=== PATIENT | male | born 1960 | race Caucasian/White ===

== ENCOUNTER 2022-02-08 10:27 | Inpatient (IN) | payer MEDICARE, MEDICAID ==
[~2022-02-08] VITALS: Ht 170.2 cm; Wt 72.7 kg
[~2022-02-08 10:27] MED LIST: ALBU8.5H17 IH; BUDE10.22 IH; CALC300T4 PO; DOCU-28 PO; FURO40TA4 PO; LAN0.125T PO; LISI5TAB22 PO; LOP25T PO; POTA10CA44 PO; WARF7.5T48 PO
[2022-02-08] MEDS ORDERED: HYDROcodone/acetaminophen 5mg/325mg tablet PO ONE (13:35)
[2022-02-08] MEDS ORDERED: normal saline 1000ML IV soln IV ONE (13:35)
[2022-02-08] MEDS ORDERED: vancomycin/NS 1 GM ADD-VANTAGE 250 ML IV ONE (13:35)
[2022-02-08] MEDS ORDERED: CefTRIAXone 2gm/D5W 50ml BAG 50 ML IV ONE (13:35)
[2022-02-08] MEDS ORDERED: iohexol 300mg/ml 100ml inj. ONE (14:01)
[2022-02-08 14:25] LABS: ALANINE AMINOTRANSFERASE 56 U/L (12-78); ALBUMIN 3.8 G/DL (3.4-5.0); ALKALINE PHOSPHATASE 78 IU/L (46-116); ANION GAP 9 (8-16); ASPARTATE AMINO TRANSFERASE 43 U/L (10-37); BILIRUBIN,TOTAL 0.7 MG/DL (0.1-1.0); BLOOD UREA NITROGEN 14 MG/DL (7-18); BUN/CREATININE RATIO 10.7 (5.4-32.0); CALCIUM 9.1 MG/DL (8.5-10.1); CHLORIDE 102 MMOL/L (99-107); CREATININE 1.31 MG/DL (0.60-1.10); GLUCOSE 95 MG/DL (70-104); SODIUM 139 MMOL/L (135-145); TOTAL PROTEIN 7.8 G/DL (6.4-8.2); eGFR 56 ML/MIN
[2022-02-08 14:35] LABS: BASOPHILS # (AUTO) 0.1 X10'3 (0-0.2); BASOPHILS % (AUTO) 0.4 % (0-1); EOSINOPHILS # (AUTO) 0.2 X10'3 (0-0.9); EOSINOPHILS % (AUTO) 1.3 % (0-6); HEMATOCRIT 34.7 % (42.0-52.0); HEMOGLOBIN 11.7 g/dl (14.0-17.9); LYMPHOCYTES # (AUTO) 1.3 X10'3 (1.1-4.8); LYMPHOCYTES % (AUTO) 10.6 % (21-51); MEAN CORPUSCULAR HEMOGLOBIN 32.4 PG (27.0-31.0); MEAN CORPUSCULAR HGB CONC 33.6 g/dL (33.0-36.5); MEAN CORPUSCULAR VOLUME 96.4 FL (78-98); MEAN PLATELET VOLUME 7.5 FL (7.4-10.4); MONOCYTES % (AUTO) 7.7 % (2-12); NEUTROPHILS # (AUTO) 9.9 X10'3 (1.8-7.7); PLATELET COUNT 322 X10'3 (140-440); RED CELL DISTRIBUTION WIDTH 15.4 % (11.5-14.5); WHITE BLOOD COUNT 12.4 X10'3 (4.5-11.0)
[2022-02-08] MEDS ORDERED: LEVO100T9 PO (16:33)
[2022-02-08] MEDS ORDERED: WARF1TAB83 PO (16:33)
[2022-02-08] MEDS ORDERED: LOSA25TA41 (16:33)
[2022-02-08] MEDS ORDERED: ISOS30TA84 PO (16:33)
[2022-02-08] MEDS ORDERED: MAGN400T52 PO (16:33)
[2022-02-08] MEDS ORDERED: WARF-55 PO (16:33)
[2022-02-08] MEDS ORDERED: CARV25TA3 PO (16:33)
[2022-02-08] MEDS ORDERED: FURO-149 PO (16:33)
[2022-02-08] MEDS ORDERED: BUDE10.2 IH (16:33)
[2022-02-08] MEDS ORDERED: ALBU18HF2 IH (16:33)
[2022-02-08] MEDS ORDERED: PANT20TA18 PO (16:33)
[2022-02-08] MEDS ORDERED: POTA-207 PO (16:33)
[2022-02-08] MEDS ORDERED: AMIO200T61 PO (16:33)
[2022-02-08] MEDS ORDERED: ATOR-2 PO (16:33)
[2022-02-08] MEDS ORDERED: NITR0.4T48 PO (16:33)
[2022-02-08] MEDS ORDERED: magnesium Cl slow-release 64mg tablet PO PRN (17:55)
[2022-02-08] MEDS ORDERED: magnesium 2GM in 50ml NS 50 ML IV PRN (17:55)
[2022-02-08] MEDS ORDERED: ondansetron/PF 4mg/2ml inj IV PRN (17:55)
[2022-02-08] MEDS ORDERED: potassium CL 10mEq/100ml bag 100 ML IV PRN (17:55)
[2022-02-08] MEDS ORDERED: acetaminophen 325mg tablet PO PRN (17:55)
[2022-02-08] MEDS ORDERED: potassium Cl 20 mEq SR tablet PO PRN ×2 (17:55)
[2022-02-08] MEDS ORDERED: magnesium 4gm in 100ml NS 100 ML IV PRN (17:55)
[2022-02-08] MEDS: normal saline 1000ml 1,000 ML IV SCH (18:10)
--- NOTE | 2022-02-08 18:50 | NUR ---
Patient in room [facility]. I have received report from TYRELL LAMAR RN and had the opportunity to ask questions and assume patient care.
[2022-02-08 19:12] LABS: MAGNESIUM 2.2 MG/DL (1.5-2.4); POTASSIUM 3.9 MMOL/L (3.5-5.1)
--- NOTE | 2022-02-08 19:15 | NUR ---
PT AWAKE ALERT AND ORIENTED TMES 4, FULL CODE, VOICED NO PAIN. ASSESSMENT COMPLETED, VITAL SIGNS STABLE. DRESSING CHANGED TO LEFT SHOULDER WOUND. ANTIBIOTICS STARTED DR VICTORIA.
[2022-02-08] MEDS: K and/or MAG REPLACEMENT MC SCH (20:00)
[2022-02-08] MEDS ORDERED: temazepam 15mg capsule PO PRN (21:00)
[2022-02-08] MEDS: VANCOMYCIN 1GM/200ML IVPB 200 ML IV SCH (21:02)
[2022-02-08 22:00] VITALS: BP 135/71
[2022-02-08] MEDS: piperacillin/tazo 3.375gm/50ml 50 ML IV SCH (22:51)
[2022-02-08] MEDS: ipratropium/albuterol 3ml nebule NEB PRN (23:43)
[2022-02-09] VITALS: BP 115/75
--- NOTE | 2022-02-09 02:45 | NUR ---
WOUND SPECIMEN COLLECTED AND SEND TO LAB FOR WOUND CULTURE.
[2022-02-09] MEDS: HYDROcodone/acetaminophen 5mg/325mg tablet PO PRN ×4 (02:46→23:43)
[2022-02-09] MEDS: normal saline 1000ml 1,000 ML IV SCH ×3 (04:19→23:46)
[2022-02-09 05:56] LABS: BASOPHILS # (AUTO) 0.1 X10'3 (0-0.2); BASOPHILS % (AUTO) 0.7 % (0-1); EOSINOPHILS # (AUTO) 0.2 X10'3 (0-0.9); EOSINOPHILS % (AUTO) 2.3 % (0-6); HEMATOCRIT 29.3 % (42.0-52.0); HEMOGLOBIN 9.8 g/dl (14.0-17.9); LYMPHOCYTES # (AUTO) 1.2 X10'3 (1.1-4.8); LYMPHOCYTES % (AUTO) 15.7 % (21-51); MEAN CORPUSCULAR HEMOGLOBIN 32.3 PG (27.0-31.0); MEAN CORPUSCULAR HGB CONC 33.4 g/dL (33.0-36.5); MEAN CORPUSCULAR VOLUME 96.9 FL (78-98); MEAN PLATELET VOLUME 8.1 FL (7.4-10.4); MONOCYTES # (AUTO) 0.8 X10'3 (0-0.9); MONOCYTES % (AUTO) 10.3 % (2-12); NEUTROPHILS # (AUTO) 5.5 X10'3 (1.8-7.7); PLATELET COUNT 215 X10'3 (140-440); RED BLOOD COUNT 3.02 X10'6 (4.70-6.10); RED CELL DISTRIBUTION WIDTH 15.7 % (11.5-14.5); WHITE BLOOD COUNT 7.7 X10'3 (4.5-11.0)
--- NOTE | 2022-02-09 06:12 | NUR ---
Problems reprioritized. Patient report given, questions answered & plan of care reviewed with Rita COLEMAN.
[2022-02-09 06:14] LABS: ANION GAP 5 (8-16); BLOOD UREA NITROGEN 11 MG/DL (7-18); BUN/CREATININE RATIO 8.9 (5.4-32.0); CHLORIDE 105 MMOL/L (99-107); CREATININE 1.23 MG/DL (0.60-1.10); GLUCOSE 77 MG/DL (70-104); MAGNESIUM 2.2 MG/DL (1.5-2.4); POTASSIUM 3.8 MMOL/L (3.5-5.1); SODIUM 138 MMOL/L (135-145); TOTAL CARBON DIOXIDE 28.3 MMOL/L (24-32); eGFR 60 ML/MIN
[2022-02-09 07:03] VITALS: BP 107/68
[2022-02-09] MEDS: K and/or MAG REPLACEMENT MC SCH ×2 (08:00→20:00)
[2022-02-09] MEDS: piperacillin/tazo 3.375gm/50ml 50 ML IV SCH ×3 (08:04→23:40)
[2022-02-09 08:20] LABS: TOTAL CELLS COUNTED 100
[2022-02-09 08:21] LABS: ACANTHOCYTES FEW; PLATELET ESTIMATE NORMAL; POLYCHROMASIA FEW
[2022-02-09 08:22] LABS: POIKILOCYTOSIS FEW
[2022-02-09 11:44] VITALS: BP 124/60
--- NOTE | 2022-02-09 12:59 | NUR ---
PAGER ID: [phone] MESSAGE: [id number] Brea Norris: patient requesting full code status. also med rec needs to be addressed. thank you! liz [phone]
[2022-02-09] MEDS: VANCOMYCIN 1GM/200ML IVPB 200 ML IV SCH (13:22)
--- NOTE | 2022-02-09 13:34 | NUR ---
WOUND INFECTION EDUCATION PROVIDED BY WOUND CARE 1. Patient instructed to call their primary doctor, or go the ED immediately if any of the following symptoms occur: * Increased pain in wound * Increase in drainage from the wound * Redness in the skin surrounding the wound * Warmth in the skin surrounding the wound * Bleeding from the wound * Temperature of 101 or greater 2. If any of these occur while in the hospital tell a nurse immediately. Addendum: 02/09/22 at 1335 by Naomi Chisholm RN Amended: Links added.
[2022-02-09] MEDS ORDERED: warfarin 5mg tablet PO SCH (13:45)
[2022-02-09] MEDS ORDERED: warfarin 1mg tablet PO SCH (13:45)
[2022-02-09] MEDS ORDERED: nitroGLYCERIN 0.4mg SUBLingual tab SL PRN (13:45)
[2022-02-09] MEDS ORDERED: albuterol 2.5 MG/3 ML nebule NEB PRN (13:55)
[2022-02-09 15:40] VITALS: BP 125/72
[2022-02-09] MEDS: amiodarone 200mg tablet PO SCH (15:57)
[2022-02-09] MEDS: isosorbide mononitrate 30mg tab.SR.24H PO SCH (15:58)
[2022-02-09] MEDS: furosemide 40mg tablet PO SCH (15:58)
[2022-02-09] MEDS: levoTHYROXINE 100mcg tablet PO SCH (15:58)
[2022-02-09] MEDS: atorvastatin 20mg tablet PO SCH (15:59)
--- NOTE | 2022-02-09 16:07 | NUR ---
PAGER ID: [phone] MESSAGE: [id number] Brea Norris: Please address code status with patient, he is also asking for tums, thanks! liz [phone]
[2022-02-09] MEDS: albuterol 2.5 MG/3 ML nebule NEB SCH ×2 (17:01→20:09)
--- NOTE | 2022-02-09 18:24 | NUR ---
Problems reprioritized. Patient report given, questions answered & plan of care reviewed with VIRGINIA Dunn.
--- NOTE | 2022-02-09 18:25 | NUR ---
Patient in room [facility]. I have received report from Rita COLEMAN and had the opportunity to ask questions and assume patient care.
[2022-02-09 20:00] VITALS: BP 129/79
[2022-02-09] MEDS: budesonide 0.5mg/2ml UD nebule IH SCH (20:10)
[2022-02-09] MEDS: carVEDilol 12.5mg tablet PO SCH (20:25)
[2022-02-09] MEDS ORDERED: warfarin 5mg tablet PO ONE (21:00)
--- NOTE | 2022-02-09 21:45 | NUR ---
Wet to dry dressing changed to left scapula. pt well tolerated,
[2022-02-10] VITALS: BP 95/56
[2022-02-10] MEDS ORDERED: VANCOMYCIN LEVEL IV ONE (01:30)
--- NOTE | 2022-02-10 01:30 | NUR ---
JERRY THROUGH DONE AND SEND TO LABS.
[2022-02-10] MEDS: HYDROcodone/acetaminophen 5mg/325mg tablet PO PRN ×3 (01:41→13:43)
[2022-02-10 01:58] LABS: BASOPHILS # (AUTO) 0.1 X10'3 (0-0.2); BASOPHILS % (AUTO) 0.9 % (0-1); EOSINOPHILS # (AUTO) 0.2 X10'3 (0-0.9); EOSINOPHILS % (AUTO) 2.2 % (0-6); HEMATOCRIT 26.5 % (42.0-52.0); LYMPHOCYTES # (AUTO) 1.3 X10'3 (1.1-4.8); LYMPHOCYTES % (AUTO) 15.6 % (21-51); MEAN CORPUSCULAR HEMOGLOBIN 32.4 PG (27.0-31.0); MEAN CORPUSCULAR HGB CONC 33.8 g/dL (33.0-36.5); MEAN PLATELET VOLUME 7.6 FL (7.4-10.4); MONOCYTES # (AUTO) 0.8 X10'3 (0-0.9); MONOCYTES % (AUTO) 9.8 % (2-12); NEUTROPHILS % (AUTO) 71.5 % (42-75); PLATELET COUNT 228 X10'3 (140-440); RED BLOOD COUNT 2.76 X10'6 (4.70-6.10); RED CELL DISTRIBUTION WIDTH 15.6 % (11.5-14.5); WHITE BLOOD COUNT 8.4 X10'3 (4.5-11.0)
[2022-02-10 02:04] LABS: ALBUMIN 2.7 G/DL (3.4-5.0); ANION GAP 7 (8-16); BLOOD UREA NITROGEN 9 MG/DL (7-18); CALCIUM 7.7 MG/DL (8.5-10.1); CHLORIDE 107 MMOL/L (99-107); CREATININE 1.28 MG/DL (0.60-1.10); GLUCOSE 95 MG/DL (70-104); MAGNESIUM 2.2 MG/DL (1.5-2.4); POTASSIUM 3.8 MMOL/L (3.5-5.1); SODIUM 141 MMOL/L (135-145); TOTAL CARBON DIOXIDE 27.2 MMOL/L (24-32); VANCOMYCIN,TROUGH 12.9 UG/ML (6.0-14.0); eGFR 57 ML/MIN
[2022-02-10] MEDS: VANCOMYCIN 1GM/200ML IVPB 200 ML IV SCH (02:33)
[2022-02-10] MEDS: albuterol 2.5 MG/3 ML nebule NEB SCH ×4 (02:34→19:59)
--- NOTE | 2022-02-10 06:21 | NUR ---
Problems reprioritized. Patient report given, questions answered & plan of care reviewed with Rita COLEMAN. .
[2022-02-10 07:10] VITALS: BP 103/44
--- NOTE | 2022-02-10 07:54 | NUR ---
Charted on wrong patient
--- NOTE | 2022-02-10 07:59 | NUR ---
PAGER ID: [phone] MESSAGE: [id number] Brea Norris: please address code status with patient, he does not wish to be a DNR. thanks! :) [phone]
[2022-02-10 08:00] VITALS: BP 122/67
[2022-02-10] MEDS: K and/or MAG REPLACEMENT MC SCH ×2 (08:00→20:00)
[2022-02-10] MEDS: piperacillin/tazo 3.375gm/50ml 50 ML IV SCH ×3 (08:07→23:52)
[2022-02-10] MEDS: pantoprazole 40mg Tablet.DR PO SCH (08:08)
[2022-02-10] MEDS: furosemide 40mg tablet PO SCH (08:08)
[2022-02-10] MEDS: isosorbide mononitrate 30mg tab.SR.24H PO SCH (08:08)
[2022-02-10] MEDS: carVEDilol 12.5mg tablet PO SCH ×2 (08:08→20:16)
[2022-02-10] MEDS: potassium Cl 20 mEq SR tablet PO SCH (08:08)
[2022-02-10] MEDS: amiodarone 200mg tablet PO SCH (08:08)
[2022-02-10] MEDS: magnesium oxide 400mg tablet PO SCH (08:08)
[2022-02-10] MEDS: levoTHYROXINE 100mcg tablet PO SCH (08:09)
[2022-02-10] MEDS: atorvastatin 20mg tablet PO SCH (08:09)
[2022-02-10] MEDS: budesonide 0.5mg/2ml UD nebule IH SCH ×2 (08:31→19:58)
[2022-02-10] MEDS: normal saline 1000ml 1,000 ML IV SCH ×2 (09:55→13:43)
[2022-02-10 12:38] VITALS: BP 129/76
[2022-02-10] MEDS: VANCOmycin 1250MG/NS 250ml Bag 250 ML IV SCH (13:45)
[2022-02-10] MEDS ORDERED: ondansetron 4mg rapidly disintigrating tab PO PRN (14:00)
--- NOTE | 2022-02-10 14:58 | NUR ---
PAGER ID: [phone] MESSAGE: Maricruz-Surg [id number] Re: Myrna 344B can we change patients IV fluids to NS @ 20 patient is drinking and voiding fine
--- NOTE | 2022-02-10 18:17 | NUR ---
Problems reprioritized. Patient report given, questions answered & plan of care reviewed with VIRGINIA Krause.
[2022-02-10 20:00] VITALS: BP_SYST 115; BP_SYST 122; BP_DIAS 74; BP_DIAS 85
[2022-02-10] MEDS ORDERED: warfarin 5mg tablet PO ONE (21:00)
[2022-02-11] VITALS: BP 117/81
[2022-02-11] MEDS: albuterol 2.5 MG/3 ML nebule NEB SCH ×4 (02:09→21:16)
[2022-02-11] MEDS: VANCOmycin 1250MG/NS 250ml Bag 250 ML IV SCH ×2 (03:17→20:47)
[2022-02-11] MEDS: normal saline 1000ml 1,000 ML IV SCH ×3 (03:19→23:25)
[2022-02-11 06:09] LABS: BASOPHILS # (AUTO) 0.1 X10'3 (0-0.2); BASOPHILS % (AUTO) 0.8 % (0-1); EOSINOPHILS # (AUTO) 0.2 X10'3 (0-0.9); EOSINOPHILS % (AUTO) 2.3 % (0-6); HEMATOCRIT 27.3 % (42.0-52.0); HEMOGLOBIN 9.2 g/dl (14.0-17.9); LYMPHOCYTES # (AUTO) 1.2 X10'3 (1.1-4.8); LYMPHOCYTES % (AUTO) 14.3 % (21-51); MEAN CORPUSCULAR HEMOGLOBIN 32.2 PG (27.0-31.0); MEAN CORPUSCULAR HGB CONC 33.7 g/dL (33.0-36.5); MEAN CORPUSCULAR VOLUME 95.3 FL (78-98); MEAN PLATELET VOLUME 7.6 FL (7.4-10.4); MONOCYTES # (AUTO) 0.9 X10'3 (0-0.9); MONOCYTES % (AUTO) 10.2 % (2-12); NEUTROPHILS # (AUTO) 6.3 X10'3 (1.8-7.7); NEUTROPHILS % (AUTO) 72.4 % (42-75); PLATELET COUNT 243 X10'3 (140-440); RED BLOOD COUNT 2.86 X10'6 (4.70-6.10); RED CELL DISTRIBUTION WIDTH 15.4 % (11.5-14.5); WHITE BLOOD COUNT 8.7 X10'3 (4.5-11.0)
[2022-02-11 06:37] LABS: ALBUMIN 2.8 G/DL (3.4-5.0); ANION GAP 8 (8-16); BLOOD UREA NITROGEN 11 MG/DL (7-18); CHLORIDE 106 MMOL/L (99-107); CREATININE 1.22 MG/DL (0.60-1.10); GLUCOSE 86 MG/DL (70-104); MAGNESIUM 2.2 MG/DL (1.5-2.4); POTASSIUM 3.8 MMOL/L (3.5-5.1); SODIUM 142 MMOL/L (135-145); TOTAL CARBON DIOXIDE 28.5 MMOL/L (24-32); eGFR 60 ML/MIN
[2022-02-11 07:04] LABS: GIANT PLATELET FEW; PLATELET ESTIMATE NORMAL; TOTAL CELLS COUNTED 100
[2022-02-11 07:05] LABS: BURR CELLS FEW; POLYCHROMASIA FEW; TEAR DROP CELLS FEW
[2022-02-11] MEDS: budesonide 0.5mg/2ml UD nebule IH SCH ×2 (07:13→21:16)
[2022-02-11] MEDS: K and/or MAG REPLACEMENT MC SCH ×2 (08:00→20:00)
[2022-02-11] MEDS: magnesium oxide 400mg tablet PO SCH (08:02)
[2022-02-11] MEDS: atorvastatin 20mg tablet PO SCH (08:03)
[2022-02-11] MEDS: pantoprazole 40mg Tablet.DR PO SCH (08:04)
[2022-02-11] MEDS: amiodarone 200mg tablet PO SCH (08:04)
[2022-02-11] MEDS: isosorbide mononitrate 30mg tab.SR.24H PO SCH (08:04)
[2022-02-11] MEDS: furosemide 40mg tablet PO SCH (08:04)
[2022-02-11] MEDS: carVEDilol 12.5mg tablet PO SCH ×2 (08:04→20:39)
[2022-02-11] MEDS: HYDROcodone/acetaminophen 5mg/325mg tablet PO PRN ×2 (08:06→13:04)
[2022-02-11] MEDS: potassium Cl 20 mEq SR tablet PO SCH (08:06)
[2022-02-11 08:07] VITALS: BP 99/52
[2022-02-11] MEDS: levoTHYROXINE 100mcg tablet PO SCH (08:07)
[2022-02-11 08:10] VITALS: BP 142/82
[2022-02-11] MEDS: piperacillin/tazo 3.375gm/50ml 50 ML IV SCH ×3 (09:11→23:25)
--- NOTE | 2022-02-11 09:52 | NUR ---
following message was sent to pharmacist: patients 0200 dose of vanco was hung up and never infused. Would you like another dose given sooner than 1400? please advise. Pharmacist advised to give 0200 dose immediately and the rest will be retimed accordingly. Vanco restarted, Zosyn on pause at the moment.
[2022-02-11 12:59] VITALS: BP 135/90
--- NOTE | 2022-02-11 13:21 | NUR ---
Initial: Pt admitted w/ abscess on the L scapular region, has undergone I&D per EMR. Pt currently on Heart Healthy diet w/ 100% intake of meals meeting est nutrient needs at this time. No BM documented and currently no routine bowel care. Recommend addition of bowel care if MD agreeable. No nutrition intervention implemented at this time, will continue to monitor. Recs: 1. Continue heart healthy diet as tolerated 2. Routine bowel care 3. Scaled wts Addendum: 02/11/22 at [address] Amended: Links added.
--- NOTE | 2022-02-11 15:43 | NUR ---
Charting by Colleen BANSAL reviewed by Ld Cottrell RN
[2022-02-11 18:00] VITALS: BP 135/72
--- NOTE | 2022-02-11 18:09 | NUR ---
Problems reprioritized. Patient report given, questions answered & plan of care reviewed with VIRGINIA Krause.
[2022-02-11] MEDS ORDERED: warfarin 3mg tablet PO ONE (21:00)
--- NOTE | 2022-02-11 21:00 | NUR ---
HOLD COUMADIN DOSE TONIGHT FOR SURGERY IN AM PER DR. EUGENE, RECHECK INR IN AM. LAB FOR INR ALREADY ORDERED.
[2022-02-12] VITALS (17 sets, daily range): BP systolic 101–156; BP diastolic 59–100
[2022-02-12] MEDS: albuterol 2.5 MG/3 ML nebule NEB SCH ×4 (02:59→20:29)
[2022-02-12 06:18] LABS: BASOPHILS % (AUTO) 0.5 % (0-1); EOSINOPHILS # (AUTO) 0.2 X10'3 (0-0.9); EOSINOPHILS % (AUTO) 2.6 % (0-6); HEMATOCRIT 28.5 % (42.0-52.0); HEMOGLOBIN 9.6 g/dl (14.0-17.9); LYMPHOCYTES # (AUTO) 1.3 X10'3 (1.1-4.8); LYMPHOCYTES % (AUTO) 14.7 % (21-51); MEAN CORPUSCULAR HEMOGLOBIN 32.1 PG (27.0-31.0); MEAN CORPUSCULAR HGB CONC 33.6 g/dL (33.0-36.5); MEAN CORPUSCULAR VOLUME 95.4 FL (78-98); MEAN PLATELET VOLUME 7.6 FL (7.4-10.4); MONOCYTES # (AUTO) 0.8 X10'3 (0-0.9); MONOCYTES % (AUTO) 9.1 % (2-12); NEUTROPHILS # (AUTO) 6.7 X10'3 (1.8-7.7); NEUTROPHILS % (AUTO) 73.1 % (42-75); PLATELET COUNT 226 X10'3 (140-440); RED BLOOD COUNT 2.99 X10'6 (4.70-6.10); RED CELL DISTRIBUTION WIDTH 15.1 % (11.5-14.5); WHITE BLOOD COUNT 9.1 X10'3 (4.5-11.0)
--- NOTE | 2022-02-12 06:36 | NUR ---
Problems reprioritized. Patient report given, questions answered & plan of care reviewed with VIRGINIA Lawson, for continuation of care. Patient remains stable at this time. All pre-operative protocol in place for surgery at 0800.
--- NOTE | 2022-02-12 06:40 | NUR ---
Patient in room [facility]. I have received report from VIRGINIA Krause and had the opportunity to ask questions and assume patient care.
[2022-02-12 06:49] LABS: ANION GAP 11 (8-16); BLOOD UREA NITROGEN 10 MG/DL (7-18); BUN/CREATININE RATIO 7.6 (5.4-32.0); CALCIUM 8.4 MG/DL (8.5-10.1); CHLORIDE 106 MMOL/L (99-107); CREATININE 1.31 MG/DL (0.60-1.10); GLUCOSE 87 MG/DL (70-104); MAGNESIUM 2.1 MG/DL (1.5-2.4); POTASSIUM 3.8 MMOL/L (3.5-5.1); SODIUM 145 MMOL/L (135-145); eGFR 56 ML/MIN
[2022-02-12] MEDS ORDERED: BUPIVAcaine 0.5% inj/PF 30 ML ONE (06:53)
[2022-02-12] MEDS: budesonide 0.5mg/2ml UD nebule IH SCH ×2 (07:07→20:29)
[2022-02-12] MEDS: pantoprazole 40mg Tablet.DR PO SCH (07:30)
[2022-02-12] MEDS: carVEDilol 12.5mg tablet PO SCH ×2 (07:35→19:36)
[2022-02-12] MEDS: HYDROcodone/acetaminophen 5mg/325mg tablet PO PRN (07:35)
[2022-02-12] MEDS: piperacillin/tazo 3.375gm/50ml 50 ML IV SCH ×2 (07:35→15:52)
[2022-02-12] MEDS ORDERED: BUPIVAcaine 0.5% inj/PF 30 ml vial IJ ONE (07:41)
[2022-02-12] MEDS: amiodarone 200mg tablet PO SCH (07:46)
[2022-02-12] MEDS: levoTHYROXINE 100mcg tablet PO SCH (07:47)
[2022-02-12] MEDS: isosorbide mononitrate 30mg tab.SR.24H PO SCH (07:47)
[2022-02-12] MEDS: atorvastatin 20mg tablet PO SCH (07:47)
[2022-02-12] MEDS: magnesium oxide 400mg tablet PO SCH (07:47)
[2022-02-12] MEDS: furosemide 40mg tablet PO SCH (07:47)
[2022-02-12] MEDS: potassium Cl 20 mEq SR tablet PO SCH (07:47)
[2022-02-12] MEDS: K and/or MAG REPLACEMENT MC SCH ×2 (08:00→20:00)
--- NOTE | 2022-02-12 08:04 | NUR ---
Report called to Kj in recovery, pt to OR via bed with IV infusing, Zosyn running and Vancomycin sent in chart.
[2022-02-12] MEDS ORDERED: FENTANYL CITRATE/PF 50 MCG/1 ML VIAL ONE (08:39)
[2022-02-12] MEDS ORDERED: midazolam 1 mg/ML 2ml injection ONE (08:39)
[2022-02-12] MEDS ORDERED: HYDROmorphone inj. 0.5 MG/0.5 ML DISP.SYRIN IV PRN (09:15)
[2022-02-12] MEDS ORDERED: propofol inj 20 ML IV ONE (09:15)
[2022-02-12] MEDS ORDERED: morphine 4 MG/ML inj SYRINge IV PRN (09:25)
[2022-02-12] MEDS ORDERED: meperidine/PF 25mg/ml syringe IV PRN ×3 (09:25)
[2022-02-12] MEDS ORDERED: ringers solution, lacted 1,000 ML IV SCH (09:25)
[2022-02-12] MEDS ORDERED: proCHLORperazine 10 MG/2 ml inj IV PRN (09:25)
[2022-02-12] MEDS ORDERED: ondansetron/PF 4mg/2ml inj IV PRN (09:25)
[2022-02-12] MEDS ORDERED: morphine 2 MG/ML inj. syringe IV PRN (09:25)
[2022-02-12] MEDS: VANCOmycin 1250MG/NS 250ml Bag 250 ML IV SCH ×2 (09:45→19:50)
--- NOTE | 2022-02-12 10:20 | NUR ---
PATIENT HAS MET ALL CRITERIA FOR TRANSFER TO THE SURGICAL/[facility]/PCU/ORTHO/ICU FLOOR. VSS. DRESSINGS INTACT. BED LOW, CALL LIGHT PRESENT AND 2 RAILS UP. RN PRESENT TO ACCEPT CARE OF PATIENT AND REPORT HAS BEEN CALLED. ALL QUESTIONS ANSWERED TO ACCEPTING RN KIERSTEN. GLASSES ON. Addendum: 02/12/22 at 1039 by Kj Cristina - VIRGINIA RN Amended: Links added.
[2022-02-12] MEDS: normal saline 1000ml 1,000 ML IV SCH ×2 (11:55→19:51)
--- NOTE | 2022-02-12 12:34 | NUR ---
Wound care for this patient was deferred today as he was scheduled for I&D of the left posterior shoulder abscess. Addendum: 02/12/22 at 1235 by Naomi Chisholm RN Amended: Links added.
[2022-02-12] MEDS: ipratropium/albuterol 3ml nebule NEB PRN (13:30)
[2022-02-12] MEDS: HYDROcodone/acetaminophen 10/325mg tab PO PRN ×2 (13:48→20:06)
--- NOTE | 2022-02-12 18:06 | NUR ---
Problems reprioritized. Patient report given, questions answered & plan of care reviewed with Jimi RNT.
[2022-02-12] MEDS ORDERED: VANCOMYCIN LEVEL IV ONE (20:30)
[2022-02-12] MEDS ORDERED: warfarin 7.5mg tablet PO ONE (21:00)
[2022-02-13] VITALS: BP 131/78
[2022-02-13] MEDS: cephalexin 500mg capsule PO SCH ×2 (01:28→09:30)
[2022-02-13] MEDS: albuterol 2.5 MG/3 ML nebule NEB SCH ×2 (02:26→10:15)
--- NOTE | 2022-02-13 06:20 | NUR ---
Patient in room [facility]. I have received report from VIRGINIA Krause and had the opportunity to ask questions and assume patient care.
--- NOTE | 2022-02-13 06:39 | NUR ---
Patient remains stable, Problems reprioritized. Patient report given, questions answered & plan of care reviewed with VIRGINIA Bernard.
[2022-02-13 06:44] LABS: BASOPHILS # (AUTO) 0.1 X10'3 (0-0.2); BASOPHILS % (AUTO) 0.8 % (0-1); EOSINOPHILS # (AUTO) 0.3 X10'3 (0-0.9); EOSINOPHILS % (AUTO) 2.8 % (0-6); HEMATOCRIT 29.9 % (42.0-52.0); HEMOGLOBIN 10.1 g/dl (14.0-17.9); LYMPHOCYTES # (AUTO) 1.4 X10'3 (1.1-4.8); LYMPHOCYTES % (AUTO) 13.9 % (21-51); MEAN CORPUSCULAR HEMOGLOBIN 32.5 PG (27.0-31.0); MEAN CORPUSCULAR HGB CONC 33.8 g/dL (33.0-36.5); MEAN CORPUSCULAR VOLUME 96.2 FL (78-98); MEAN PLATELET VOLUME 8.2 FL (7.4-10.4); MONOCYTES # (AUTO) 0.9 X10'3 (0-0.9); MONOCYTES % (AUTO) 9.3 % (2-12); NEUTROPHILS # (AUTO) 7.3 X10'3 (1.8-7.7); NEUTROPHILS % (AUTO) 73.2 % (42-75); PLATELET COUNT 241 X10'3 (140-440); RED BLOOD COUNT 3.11 X10'6 (4.70-6.10); RED CELL DISTRIBUTION WIDTH 15.5 % (11.5-14.5); WHITE BLOOD COUNT 9.9 X10'3 (4.5-11.0)
[2022-02-13 06:47] LABS: ALBUMIN 3.2 G/DL (3.4-5.0); ANION GAP 2 (8-16); BLOOD UREA NITROGEN 11 MG/DL (7-18); BUN/CREATININE RATIO 9.5 (5.4-32.0); CALCIUM 8.3 MG/DL (8.5-10.1); CHLORIDE 107 MMOL/L (99-107); CREATININE 1.16 MG/DL (0.60-1.10); GLUCOSE 95 MG/DL (70-104); POTASSIUM 4.2 MMOL/L (3.5-5.1); SODIUM 139 MMOL/L (135-145); TOTAL CARBON DIOXIDE 29.6 MMOL/L (24-32); VANCOMYCIN,RANDOM 22.7 UG/ML; eGFR 64 ML/MIN
[2022-02-13 06:58] LABS: HIV ANTIBODY 1&2 RAPID NON-REACTIVE (Neg)
[2022-02-13 07:00] VITALS: BP 119/77
[2022-02-13] MEDS: HYDROcodone/acetaminophen 10/325mg tab PO PRN (07:03)
--- NOTE | 2022-02-13 07:15 | NUR ---
Dr Tan stated pt may be dc'd home today w/ BID drsg changes and current PO abx. Pt stated he has no one to asst w/ drsg changes. CM paged to assess for HHC. Dr. Jones notified.
[2022-02-13] MEDS: K and/or MAG REPLACEMENT MC SCH (07:42)
[2022-02-13] MEDS: carVEDilol 12.5mg tablet PO SCH (08:00)
[2022-02-13 08:25] LABS: MAGNESIUM 2.2 MG/DL (1.5-2.4)
[2022-02-13] MEDS: normal saline 1000ml 1,000 ML IV SCH (08:30)
[2022-02-13] MEDS ORDERED: CEPH-585 PO (09:06)
[2022-02-13] MEDS ORDERED: CLIN-91 PO (09:09)
[2022-02-13] MEDS ORDERED: ACET-1008 PO (09:29)
[2022-02-13] MEDS: pantoprazole 40mg Tablet.DR PO SCH (09:30)
[2022-02-13] MEDS: atorvastatin 20mg tablet PO SCH (09:30)
[2022-02-13] MEDS: potassium Cl 20 mEq SR tablet PO SCH (09:30)
[2022-02-13] MEDS: furosemide 40mg tablet PO SCH (09:30)
[2022-02-13] MEDS: magnesium oxide 400mg tablet PO SCH (09:30)
[2022-02-13] MEDS: levoTHYROXINE 100mcg tablet PO SCH (09:30)
[2022-02-13] MEDS: isosorbide mononitrate 30mg tab.SR.24H PO SCH (09:30)
[2022-02-13] MEDS: amiodarone 200mg tablet PO SCH (09:30)
[2022-02-13] MEDS: budesonide 0.5mg/2ml UD nebule IH SCH (10:14)
[2022-02-13 11:00] VITALS: BP 110/76
--- NOTE | 2022-02-13 12:20 | NUR ---
DC inst provided to pt. IV DC'd, tip intact. All belongings sent w/pt. WC to cab.
[2022-02-13] MEDS ORDERED: warfarin 7.5mg tablet PO ONE (21:00)
== END 2022-02-13 12:20 | disposition home health service (06) | DRG 580 ==
LOC: ER 10:27 → ED HOLD 17:57 → SUR 3N 19:44
PROVIDERS: ADMIT Internal Medicine; ATTEND Internal Medicine
PROC: BP2U1ZZ Computerized Tomography (CT Scan) of Left Upper Extremity using Low Osmolar Contrast (ICD-10-PCS; 2022-02-08)
PROC: 0JB73ZZ Excision of Back Subcutaneous Tissue and Fascia, Percutaneous Approach (ICD-10-PCS; principal; 2022-02-12 08:32)
DX: L02.414 Cutaneous abscess of left upper limb (principal); I50.22 Chronic systolic (congestive) heart failure; N17.9 Acute kidney failure, unspecified; L03.114 Cellulitis of left upper limb; I25.10 Atherosclerotic heart disease of native coronary artery without angina pectoris; I48.91 Unspecified atrial fibrillation; Z66 Do not resuscitate; E03.9 Hypothyroidism, unspecified; J44.9 Chronic obstructive pulmonary disease, unspecified; K21.9 Gastro-esophageal reflux disease without esophagitis; Z60.2 Problems related to living alone; F41.9 Anxiety disorder, unspecified; B95.61 Methicillin susceptible Staphylococcus aureus infection as the cause of diseases classified elsewhere; E78.5 Hyperlipidemia, unspecified; F17.210 Nicotine dependence, cigarettes, uncomplicated; Z20.822 Contact with and (suspected) exposure to COVID-19; I11.0 Hypertensive heart disease with heart failure; I25.2 Old myocardial infarction; Z59.00 Homelessness unspecified; Z86.73 Personal history of transient ischemic attack (TIA), and cerebral infarction without residual deficits; Z95.0 Presence of cardiac pacemaker; Z95.1 Presence of aortocoronary bypass graft; Z95.2 Presence of prosthetic heart valve; Z79.899 Other long term (current) drug therapy; Z90.49 Acquired absence of other specified parts of digestive tract; Z71.6 Tobacco abuse counseling
CPT/HCPCS: 36415; 73201; 80048; 80053; 80202; 82948; 83605; 83735; 84132; 84145; 84443; 85007; 85025; 85610; 86703; 87040; 87070; 87077; 87081; 87186; 87635; 88305; 93005; 94640; 94760; 96374; 96375; 99285; A4618; A6258; A6446; A6449; A7000; G0378; J0696; J2250; J2543; J2704; J3010; J3370; J7030; J7120; Q9967; S0020

== ENCOUNTER 2025-03-29 06:44 | Day surgery (SDC) | payer MEDICARE, MEDICAID ==
[~2025-03-29] VITALS: Ht 180.3 cm; Wt 69.8 kg
[2025-03-29] VITALS (9 sets, daily range): BP systolic 104–151; BP diastolic 76–87; PULSE 60–63; RESP 12–20; TEMP 98.1; O2SAT 95–100
[~2025-03-29 06:44] MED LIST changes: +ALBU18HF2 IH; -ALBU8.5H17 IH; +AMI200T PO; +ATOR-2 PO; +BUDE10.2 IH; -BUDE10.22 IH; -CALC300T4 PO; +CARV25TA3 PO; -DOCU-28 PO; +FURO-149 PO; -FURO40TA4 PO; +ISOS30TA84 PO; -LAN0.125T PO; +LEVO100T9 PO; -LISI5TAB22 PO; -LOP25T PO; +LOSA25TA41 PO; +MAGN400T52 PO; +NITR0.4T48 PO; +PANT20TA18 PO; +POTA-207 PO; -POTA10CA44 PO; +WARF-55 PO; +WARF1TAB83 PO; -WARF7.5T48 PO
[2025-03-29] MEDS ORDERED: ceFAZolin 2gm in dextrose, iso 50 ML IV ONE (07:10)
--- NOTE | 2025-03-29 07:20 | ELECTROCARDIOGRAPH REPORT ---
[facility] Test Date: 2025-03-29 Test Time: 07:17:55 Pat Name: YNES EVERETT Department: [facility] Patient ID: [facility]-[id number] Room: Gender: M Basketball Coach: DANICA : 1960 Requested By: DAVID JUDD Order Number: [id number] Reading MD: Dr. ISAMAR Cortez Measurements Intervals [place] Rate: 60 P: 0 NC: 43 QRS: 0 QRSD: 183 T: 112 QT: 475 QTc: 475 Interpretive Statements A-V dual-paced rhythm with some inhibition No further analysis attempted due to paced rhythm Electronically Signed On 03-29-2025 16:13:[address] ISAMAR Cortez Please click the below link to view image of tracing.
[2025-03-29] MEDS ORDERED: ALBU18HF2 INH (07:35)
[2025-03-29] MEDS ORDERED: LEVO50TA8 PO (07:35)
[2025-03-29] MEDS ORDERED: WARF4TAB69 PO (07:35)
[2025-03-29 07:43] LABS: BASOPHILS # (AUTO) 0.1 X10'3 (0-0.2); BASOPHILS % (AUTO) 0.8 % (0-1); EOSINOPHILS # (AUTO) 0.3 X10'3 (0-0.9); EOSINOPHILS % (AUTO) 3.2 % (0-6); HEMATOCRIT 36.7 % (42.0-52.0); HEMOGLOBIN 12.5 g/dl (14.0-17.9); LYMPHOCYTES # (AUTO) 1.4 X10'3 (1.1-4.8); LYMPHOCYTES % (AUTO) 13.7 % (21-51); MEAN CORPUSCULAR HEMOGLOBIN 31.3 PG (27.0-31.0); MEAN CORPUSCULAR HGB CONC 34.2 g/dL (33.0-36.5); MEAN CORPUSCULAR VOLUME 91.7 FL (78-98); MEAN PLATELET VOLUME 9.3 FL (7.4-10.4); MONOCYTES # (AUTO) 1.1 X10'3 (0-0.9); MONOCYTES % (AUTO) 10.6 % (2-12); NEUTROPHILS # (AUTO) 7.2 X10'3 (1.8-7.7); NEUTROPHILS % (AUTO) 71.7 % (42-75); PLATELET COUNT 192 X10'3 (140-440); RED CELL DISTRIBUTION WIDTH 17.3 % (11.5-14.5); WHITE BLOOD COUNT 10.1 X10'3 (4.5-11.0)
[2025-03-29] MEDS: vancomycin/NS 1 GM ADD-VANTAGE 250 ML IV ONE (07:46)
[2025-03-29] MEDS: normal saline 1000ml 1,000 ML IV SCH (07:46)
[2025-03-29 08:08] LABS: ALBUMIN 4.5 G/DL (3.4-5.0); ANION GAP 10 (8-16); BLOOD UREA NITROGEN 41 MG/DL (7-18); BUN/CREATININE RATIO 16.1 (10.0-20.0); CALCIUM 8.9 MG/DL (8.5-10.1); CHLORIDE 103 MMOL/L (99-107); CREATININE 2.54 MG/DL (0.60-1.10); GLUCOSE 109 MG/DL (70-104); MAGNESIUM 1.7 MG/DL (1.5-2.4); POTASSIUM 3.5 MMOL/L (3.5-5.1); SODIUM 136 MMOL/L (135-145); TOTAL CARBON DIOXIDE 22.6 MMOL/L (24-32); eCRCL 29 ML/MIN; eGFR 26 ML/MIN
[2025-03-29] MEDS ORDERED: fentaNYL/PF 50MCG/1 ML 2ML syringe ONE (08:42)
[2025-03-29] MEDS ORDERED: vancomycin 1,000mg inj ONE (08:42)
[2025-03-29] MEDS ORDERED: LIDOCAINE 2%/EPI 1:100,000 inj. Multi-dose 20 ML VIAL ONE (08:42)
[2025-03-29] MEDS ORDERED: midazolam 1 mg/ML 2ml injection ONE ×3 (08:42→09:49)
[2025-03-29 08:48] LABS: INR 1.6 INR; PROTHROMBIN TIME 15.8 SECONDS (9.0-12.0)
[2025-03-29] MEDS ORDERED: LIDOcaine 1% W/epiNEPHrine 1:100,000 20ml vial ONE (09:12)
[2025-03-29] MEDS ORDERED: HYDROmorphone 1 mg/ml syringe ONE (09:20)
--- NOTE | 2025-03-29 12:07 | CARDIOLOGY REPORT ---
DATE OF SERVICE: 03/29/2025 DICTATING PHYSICIAN: DAVID JUDD DO CARDIAC CATHETERIZATION REPORT REFERRING PHYSICIAN: Tavares Cummins MD. PROCEDURES PERFORMED: * Removal of existing biventricular pacemaker/ICD pulse generator. * Pacemaker pocket revision. * Implant of new BiV pacemaker/ICD pulse generator. * A 60-minute conscious sedation supervision. PREOPERATIVE DIAGNOSES: * Cardiomyopathy. * Generator at the elective replacement interval. POSTOPERATIVE DIAGNOSES: * Cardiomyopathy. * Generator at the elective replacement interval. HISTORY: The patient has had a biventricular pacemaker/ICD since early 07/2009. The generator is at the elective replacement interval, although this generator was a replacement for the original in late 10/2015. ANESTHESIA: Conscious sedation with local to skin. DEVICE REMOVED: [employer] pulse generator, model #G154 and serial #[id number]. EXISTING ELECTRODES: Guidant coronary venous/LV electrode, model #4525 and serial #[id number]; Guidant RV ICD electrode, model #1075 and serial #[id number]; Guidant right atrial electrode, model #4470 and serial #[id number]. DEVICES IMPLANTED: [employer]D-Sight pulse generator, model #DAAF5L3 and serial #[id number]. DESCRIPTION OF PROCEDURE: The patient was sedated with fentanyl and grossly. He was then prepared and draped in the usual manner. The left pectoral region was liberally infiltrated with 1% lidocaine containing a 1:100,000 mixture of epinephrine. The pacemaker pocket was opened by incising along the existing scar line. Virtually, all of the scarified capsule was removed as part of the removal of the generator. Beneath the generator was a tangled morass of scar tissue and electrodes, which required a long tedious dissection. A subpectoral pocket was then created since this patient is very thin and the skin around the head of the previous device was very tense. The electrodes from the old device were switched over to the new device and together they were placed in the pocket. The pocket was irrigated with a vancomycin antibiotic solution. The pectoral muscle opening was closed loosely with 3-0 Vicryl. The subcutaneous layer was closed with 2-0 Vicryl at its lowest level and with 3-0 Vicryl at a more shallow level. The pocket was irrigated with a vancomycin antibiotic solution. The skin was then closed with leonardo. ESTIMATED BLOOD LOSS: Less than 10 mL. COMPLICATIONS: No complications. Initial Franck parameters were as follows: Mode DDDR, LRL 60 PPM, upper activity and upper tracking rates 110 PPM, sensed AV delay 120 milliseconds, paced AV delay 150 milliseconds. The amplitude for the atrial and left ventricular electrodes were set at 3.5 volts. Atrial sensitivity is set at 0.3 volts. Right ventricular sensitivity is 0.3 volts. The right ventricular electrode is not pacing, but does do appropriate sensing. For the ventricular tachyarrhythmia management algorithms, please see the Medtronic implant record. DAVID JUDD DO TID: [id number] RECEIPT: [id number] SUSAN EATON
[2025-03-29] MEDS: HYDROcodone/acetaminophen 5mg/325mg tablet PO ONE (12:27)
[2025-03-29] MEDS: ondansetron/PF 4mg/2ml inj ONE (12:36)
== END 2025-03-29 13:04 | disposition home or self-care (01) ==
LOC: SSTAY O 06:44
PROVIDERS: ATTEND Internal Medicine Cardiovascular Disease
DX: Z45.02 Encounter for adjustment and management of automatic implantable cardiac defibrillator (principal); I42.9 Cardiomyopathy, unspecified; Z79.899 Other long term (current) drug therapy; Z79.01 Long term (current) use of anticoagulants; Z98.890 Other specified postprocedural states
CPT/HCPCS: 33264; 36415; 80048; 83735; 85025; 85610; 93005; 99152; 99153; C1882; J1171; J2250; J2405; J3010; J3370; J3490; J7030; Z7610

== ENCOUNTER 2025-09-20 06:22 | Day surgery (SDC) | payer MEDICARE, MEDICAID ==
[~2025-09-20] VITALS: Ht 172.7 cm; Wt 66.5 kg
[2025-09-20] VITALS (11 sets, daily range): BP systolic 109–147; BP diastolic 71–89; PULSE 60–83; RESP 12–16; TEMP 98; O2SAT 93–98
[~2025-09-20 06:22] MED LIST changes: +ALBU18HF2 INH; -AMI200T PO; +AMIO200T76 PO; -LEVO100T9 PO; +LEVO50TA8 PO; -WARF-55 PO; -WARF1TAB83 PO; +WARF4TAB69 PO
[2025-09-20] MEDS ORDERED: ceFAZolin 2gm/dext,iso 50mL 50 ML IV ONE (06:44)
--- NOTE | 2025-09-20 06:50 | ELECTROCARDIOGRAPH REPORT ---
[facility] Test Date: 2025-09-20 Test Time: 06:46:23 Pat Name: YNES EVERETT Department: [facility] Patient ID: [id number] Room: Gender: M [employer] Supervisor: MAC : 1960 Requested By: DAVID JUDD Order Number: [id number] Reading MD: Dr. ISAMAR Cortez Measurements Intervals [place] Rate: 73 P: 68 CT: 141 QRS: 120 QRSD: 245 T: 3 QT: 525 QTc: 579 Interpretive Statements A-V dual-paced rhythm with some inhibition No further analysis attempted due to paced rhythm Electronically Signed On 09-20-2025 16:02:[address] ISAMAR Cortez Please click the below link to view image of tracing.
[2025-09-20] MEDS ORDERED: CARV6.252 PO (06:53)
[2025-09-20 07:14] LABS: MEAN PLATELET VOLUME 9.1 FL (7.4-10.4); RED CELL DISTRIBUTION WIDTH 16.5 % (11.5-14.5)
[2025-09-20 07:17] LABS: INR 1.4 INR
[2025-09-20 07:24] LABS: CREATININE 1.40 MG/DL (0.60-1.10); TOTAL CARBON DIOXIDE 27.7 MMOL/L (24-32); eCRCL 49 ML/MIN; eGFR 51 ML/MIN
[2025-09-20] MEDS: vancomycin/NS 1 GM ADD-VANTAGE 250 ML IV ONE (07:41)
[2025-09-20] MEDS: normal saline 1000ml 1,000 ML IV SCH (07:42)
[2025-09-20] MEDS ORDERED: midazolam 1 mg/ML 2ml injection ONE ×5 (08:09→11:50)
[2025-09-20] MEDS ORDERED: LIDOcaine 1% W/epiNEPHrine 1:100,000 20ml vial ONE (08:09)
[2025-09-20] MEDS ORDERED: fentaNYL/PF 50MCG/1 ML 2ML syringe ONE (08:09)
[2025-09-20] MEDS ORDERED: iohexol 350 MG/ML 50ML vial IV ONE ×2 (08:10→08:54)
[2025-09-20] MEDS ORDERED: vancomycin 1,000mg inj ONE (08:10)
[2025-09-20] MEDS ORDERED: ondansetron/PF 4mg/2ml inj ONE (12:37)
[2025-09-20] MEDS: ketorolac trometh 15mg/ml vial 15 MG/ML ML IV ONE (13:36)
[2025-09-20] MEDS ORDERED: ceFAZolin/D5W- 1GM premix 50 ML IV SCH (18:00)
--- NOTE | 2025-09-20 18:24 | CARDIOLOGY REPORT ---
DATE OF SERVICE: 09/20/2025 DICTATING PHYSICIAN: DAVID JUDD DO CARDIAC CATHETERIZATION REPORT REFERRING PHYSICIAN: Tavares Cummins MD. PROCEDURES PERFORMED: * Left upper extremity venography. * Placement of a new right ventricular/ICD electrode. * Pacemaker pocket revision. * Replacement of existing pacemaker/defibrillator. * 3 hours, 45 minutes conscious sedation supervision. CLINICAL HISTORY: This 65-year-old man has a long history of cardiac problems. According to some of the dates on his electrodes, he has had a biventricular pacemaker since 2008. The generator was changed in 2017 and again in early March 2025. He has a [employer] dual coil RVICD electrode, which has developed calcification within the coils rendering a higher than usual impedance and concern about its efficacy in being able to provide successful ventricular defibrillation. There has also been a problem with sensing and pacing involving the right ventricular electrode to the extent that he requires 5 volts for satisfactory capture. ANESTHESIA: Conscious sedation with local to skin. DEVICES REMOVED: Medtronic biventricular pacemaker/ICD pulse generator number. EXISTING ELECTRODES: No existing electrodes. Guidant LV electrode model number 4525 and serial number [id number]; Guidant RVICD electrode, model number 0175 and serial number [id number]; Guidant right atrial electrode, model number 4470 and serial number [id number]. DEVICES IMPLANTED: Medtronic RVICD electrode model number 6935M and serial number [id number]; Medtronic pulse generator model number TWUH1O8 and serial number [id number]. DESCRIPTION OF PROCEDURE: Before the patient was prepared and draped, a left upper extremity venogram was performed using an IV placed in the left arm before coming to the catheterization laboratory. The venogram demonstrated patency of the subclavian vein and inferior vena cava. The patient was then prepared and draped in the usual manner and he was sedated with fentanyl and Versed. Using a micropuncture set, a small guidewire was placed in the left subclavian vein and inferior vena cava. Next, the pacemaker pocket was opened by incising along a diagonal scar line. The generator was exposed, but there was a very large amount of scarification/cicatrix surrounding the device. The generator was extracted with great difficulty because of the encasement and using large Karissa clamps. The case itself became somewhat dented and was questionable in function because of the difficulty in removing it. Next, there followed again the difficulty of removing the generator. Its ongoing efficacy was questioned because of the dents from the Karissa clamps, removing it from the very scarified pocket. It was disconnected and there followed a 2-hour dissection of very, very matted and twisted and disorganized electrodes running to the device. After this extensive dissection, the electrodes were sorted and the malfunctioning RVICD electrode was capped. Next, the small micropuncture guidewire was pulled into the pocket, and using the transitional sheath and a 0.035 guidewire, a long 9.5 cm sheath was positioned in the proximal superior vena cava. Using this sheath, the new RVICD electrode was passed into the right atrium, prolapsed across the tricuspid valve, and ultimately placed in what appeared to be an area near the septum, but slightly lateral of the old RVICD electrode. Sensing and pacing at this location demonstrated an R-wave amplitude of 20 mm at pacing impedance of 475 ohms and a threshold for capture of 0.75 volts. Testing of the right atrial electrode demonstrated a P-wave amplitude of 4.4 volts with a pacing impedance of 390 ohms and threshold for capture of 0.75 volts as well. The electrodes were attached to the new generator and together they were placed in the pocket. There was extensive oozing of blood requiring cauterization and use of SurgiGel in 2 locations. Ultimately, the generator electrodes were looped in an organized manner. The generator was placed in the pocket and a Tyrx pouch was also placed in the pocket. Next, the generator pocket was irrigated with a vancomycin antibiotic solution. The subcutaneous layer was closed with 3-0 Vicryl and the skin was approximated with surgical leonardo. ESTIMATED BLOOD LOSS: Estimated blood loss for the procedure was about 30 mL. COMPLICATIONS: There were no complications. Initial Franck parameters were as follows: Amplitude and pulse widths were set at 3.5 volts and 0.4 milliseconds. Sensitivity on the atria and on right ventricular electrodes was set at 0.3 volts. Mode was DDDR, LRL 50 BPM, upper activity rate 120 BPM, upper tracking rate 130 BPM, paced AV delay 130 milliseconds, sensed AV delay 100 milliseconds. For the ventricular tachyarrhythmia management algorithms, please see the Medtronic implant record. A chest x-ray was pending at the time of this dictation. DAVID JUDD DO TID: [id number] RECEIPT: [id number] RICCI EATON
== END 2025-09-20 16:10 | disposition home or self-care (01) ==
LOC: SSTAY O 06:22
PROVIDERS: ATTEND Internal Medicine Cardiovascular Disease
DX: Z45.02 Encounter for adjustment and management of automatic implantable cardiac defibrillator (principal); I25.5 Ischemic cardiomyopathy; I42.0 Dilated cardiomyopathy; I25.10 Atherosclerotic heart disease of native coronary artery without angina pectoris; I12.9 Hypertensive chronic kidney disease with stage 1 through stage 4 chronic kidney disease, or unspecified chronic kidney disease; N18.9 Chronic kidney disease, unspecified; E78.5 Hyperlipidemia, unspecified; E03.9 Hypothyroidism, unspecified; Z86.73 Personal history of transient ischemic attack (TIA), and cerebral infarction without residual deficits; Z95.4 Presence of other heart-valve replacement
CPT/HCPCS: 33264; 36415; 80048; 83735; 85025; 85610; 93005; 99152; 99153; A4565; A4615; A6402; C1769; C1882; C1894; C1895; J1171; J1885; J1938; J2250; J2405; J3010; J3373; J3490; J7030; Q9967; Z7610; 33216; A6449